=== PATIENT | female | born 1970 | race Caucasian/White ===

== ENCOUNTER 2024-11-11 13:04 | Emergency (ER) | payer OTHER, SELFPAY ==
[2024-11-11 13:16] VITALS: BP 107/69; PULSE 57; RESP 16; TEMP 36.7; O2SAT 100
--- NOTE | 2024-11-11 13:19 | ED_ITS ---
HPI - Ear Problem General Chief complaint: Ear Stated complaint: Sinus/Ears Irritation Time Seen by Provider: 11/11/24 13:56 Source: patient and RN notes reviewed Mode of arrival: ambulatory Limitations: no limitations History of Present Illness HPI Narrative: 53-year-old female presents concern for symptom week history of sinus congestion, drainage, pain and pressure, pressure around her eyes and around her teeth. Reports forehead pressure. She reports she has been taking [id number] medications without relief. Reports she took a Z-Chet at the end of October without relief. She denies fever. Reports occasional cough MD Complaint: ear pain Related Data Home Medications ?Medication ?Instructions ?Recorded ?Confirmed ?Last Taken ?Type loratadine 10 mg tablet (Claritin) 10 mg PO DAILY 12/10/22 08/24/24 Unknown History rizatriptan 10 mg tablet See Rx Instructions PO .COMPLEX 12/10/22 08/24/24 Unknown History Allergies Allergy/AdvReac Type Severity Reaction Status Date / Time augmentin Allergy Severe Vomiting Uncoded 11/11/24 13:14 Review of Systems Review of Systems: CONSTITUTIONAL: Denies malaise, chills, sweats, or fever. EYES: Denies visual changes, redness, or discharge. ENT: Reports rhinorrhea, congestion, sinus pain. Reports bilateral ear pain CARDIOVASCULAR: Denies chest pain, palpitations, or edema. RESPIRATORY: Reports occasional cough. Denies dyspnea. GASTROINTESTINAL: Denies abdominal pain, nausea, vomiting, diarrhea SKIN: Denies rash or itching. MUSCULOSKELETAL: Denies myalgia. NEUROLOGIC: Denies headache. All systems reviewed & are unremarkable except as noted in HPI and below [facility] Family History Family History Grandparent Cancer Heart disease Cerebrovascular accident Mother Diabetes mellitus Hypertension Father Hypertension Heart disease Other Hypertension Social History Social History Smoking status: Never smoker Alcohol intake: current Lack of Transportation: No Lack of Food: Never True Current Housing: I Have Housing Concerned About Future Housing: No Difficulty Paying Gas/Electric Bills: No Difficulty Paying for Meds: No Currently Unemployed: No Education: High School Diploma/GED Difficulty w/ Childcare or Family Care: No Comments At time of signature, agree with nursing past medical, surgical, social and family history. There is no relevant family history pertinent to the presenting complaint Exam Narrative: GENERAL: Well-appearing, well-nourished, and in no acute distress. HEAD: Normocephalic EYES: PERRLA, conjunctivae clear ENT: Nares clear, turbinates edematous, erythematous. Mucous membranes moist. TM pearly miner with dull light reflex bilaterally; no tragal tenderness. Oropharynx not erythematous without lesions. Tonsils not enlarged and without exudate, no drooling, no hoarseness, no trismus, uvula midline. NECK: Supple. No lymphadenopathy CHEST: Clear to auscultation, breath sounds equal. No wheezing, rhonchi, rales, or stridor. No respiratory distress, speaks in full sentences. HEART: Regular rate and rhythm. No murmur heard. SKIN: Warm, dry, no rash. NEURO: Alert and oriented x3. PSYCH: Normal mood and affect Course Course Emergency Course: Patient is aware of diagnosis, understands and agrees to treatment plan. Anticipatory guidance given. Patient agrees to follow-up as directed and is aware of reasons to seek care at the emergency department. Portions of this record may have been created with voice recognition software Level of Care: Express Care Visit Vital Signs Vital signs: Vital Signs Temperature 98.0 F 11/11/24 13:16 Pulse Rate 57 L 11/11/24 13:16 Respiratory Rate 16 11/11/24 13:16 Blood Pressure 107/69 11/11/24 13:16 Pulse Oximetry 100 11/11/24 13:16 Oxygen Delivery Room Air 11/11/24 13:16 Temperature 98.0 F 11/11/24 13:16 Pulse Rate 57 L 11/11/24 13:16 Respiratory Rate 16 11/11/24 13:16 Blood Pressure 107/69 11/11/24 13:16 Pulse Oximetry 100 11/11/24 13:16 Oxygen Delivery Room Air 11/11/24 13:16 Reviewed. Medical Decision Making MDM Narrative Medical decision making narrative: I evaluated this in the express care. History is obtained from patient who is an independent historian and physical exam was performed.? Available medical records were reviewed. ? Exam findings and relevant testing show no acute concerns or changes; patient is non-toxic appearing and is in no distress. Differential diagnosis considered: Haro virus, strep pharyngitis, allergic rhinitis, upper respiratory tract infection, sinusitis, rhinosinusitis, nasopharyngitis. viral pharyngitis, otitis media, otitis externa, otitis effusion, cerumen impaction, foreign body. Exam findings show no acute concerns or changes; patient is non-toxic appearing and is in no distress. Patient is appropriate for outpatient treatment and follow-up. ? Differential diagnosis and treatment plan were discussed with the patient. Patient agrees with discussion and after shared medical decision making agrees with plan of care. All questions were answered to the patient's satisfaction. Patient is appropriate for outpatient treatment and follow-up. Vital Signs Vital Signs: Vital Signs Temperature 98.0 F 11/11/24 13:16 Pulse Rate 57 L 11/11/24 13:16 Respiratory Rate 16 11/11/24 13:16 Blood Pressure 107/69 11/11/24 13:16 Pulse Oximetry 100 11/11/24 13:16 Oxygen Delivery Room Air 11/11/24 13:16 Temperature 98.0 F 11/11/24 13:16 Pulse Rate 57 L 11/11/24 13:16 Respiratory Rate 16 11/11/24 13:16 Blood Pressure 107/69 11/11/24 13:16 Pulse Oximetry 100 11/11/24 13:16 Oxygen Delivery Room Air 11/11/24 13:16 Critical Care Time Critical Care Time Critical Care Time: No Discharge Plan Discharge Clinical Impression: Acute bacterial sinusitis Patient Disposition: Home, Self-Care Condition: Stable Instructions: Antibiotic Form, Sinusitis (ED) Additional Instructions: Take medication as prescribed Nonprescription pain medications, such as acetaminophen (eg, Tylenol) or ibuprofen (eg, Motrin, Advil), are recommended for pain. Flushing the nose and sinuses with a saline solution several times per day has been proven to decrease pain associated with congestion and shorten the duration of symptoms. Nasal steroids (such as Flonase, 2 sprays in each nostril daily) can help to reduce swelling inside the nose, usually within two to three days. These drugs have few side effects and relieve symptoms in most people. Medications to thin secretions (such as guaifenesin) may help to clear mucus. Please follow-up with your primary care doctor in the next 1-2 days. If you cannot follow-up with your primary care doctor please go to the ED for any urgent issues. If you have any worsening of symptoms or any other concerns please go to the ED immediately. Patient Language: [place] Prescriptions: New doxycycline monohydrate 100 mg tablet 100 mg PO BID 7 Days Qty: 14 0RF methylprednisolone [Medrol (Chet)] 4 mg tablets,dose pack See Rx Instructions .ROUTE .COMPLEX Qty: 21 0RF Rx Instructions: orally per package directions No Action rizatriptan 10 mg tablet See Rx Instructions PO .COMPLEX Rx Instructions: take 1 tab at onset of headache; if no relief may repeat 1 tab after at least 2 hrs; max = 3 tabs/24 hr PO loratadine [Claritin] 10 mg tablet 10 mg PO DAILY azithromycin [Zithromax] 250 mg tablet See Rx Instructions PO .COMPLEX Qty: 6 0RF Rx Instructions: For 250 mg dose pack: take 500 mg today (day 1), then 250 mg for 4 days (days 2-5) PO Follow-up/Referrals: PHYSICIAN,BRAND ACTIVATION MANAGER [Primary Care Provider] - Time of Disposition: 13:52
== END 2024-11-11 14:00 | disposition home or self-care (01) ==
PROVIDERS: Emergency Provider Nurse Practitioner
DX: J01.90 Acute sinusitis, unspecified (principal)
CPT/HCPCS: 99213; G0463

== ENCOUNTER 2024-12-09 15:48 | Outpatient (CLI) | payer OTHER, SELFPAY ==
--- NOTE | ~2024-12-09 | CT_ITS ---
CT sinus wo con Ordering provider: Dylon Tong M.D. History: . J01.01 - Acute recurrent maxillary sinusitis . Comparison: None. Technique: Thin slice Scans CT of the paranasal sinuses was performed with coronal and sagittal refor matted images. No IV contrast. . Automated exposure control and iterative reconstruction technique w ere employed. The dose-length product was 270.28 mGy-cm. Findings: NASAL SEPTUM: Mild right nasal septal deviation. OSTEOMEATAL UNITS: The left is obliterated by mucosal thickening. NASAL TURBINATES AND NASOPHARYNX: Normal. PARANASAL SINUSES: Bilateral maxillary and left sphenoid sinus disease. VISUALIZED MASTOIDS: Normal as visualized. BONES: Normal. SUPERFICIAL SOFT TISSUES/VISUALIZED BRAIN PARENCHYMA: Normal. IMPRESSION: Bilateral maxillary sinus disease. Left sphenoid sinus disease. Right nasal septal deviation. Reviewed, dictated and finalized at location [facility]
== END 2024-12-09 15:49 | disposition home or self-care (01) ==
LOC: MICIMG 15:49
PROVIDERS: PCP Otolaryngology; Visit Provider Otolaryngology
DX: J01.01 Acute recurrent maxillary sinusitis (principal); M26.609 Unspecified temporomandibular joint disorder, unspecified side; J34.2 Deviated nasal septum
CPT/HCPCS: 70486